=== PATIENT | male | born 2000 | race Caucasian/White ===

== ENCOUNTER 2023-05-21 06:47 | Emergency (ER) | payer OTHER ==
[~2023-05-21] VITALS: Ht 175.3 cm; Wt 95.5 kg
[2023-05-21 07:09] LABS: BASOPHILS % (AUTO) 0.3 % (0.0-2.0); EOSINOPHILS % (AUTO) 0.3 % (1.0-6.0); HEMATOCRIT 47.1 % (41-53); HEMOGLOBIN 15.5 g/dL (13.5-17.5); LYMPHOCYTES # (AUTO) 1.7 K/uL (1.0-4.8); LYMPHOCYTES % (AUTO) 12.3 % (22.0-44.0); MEAN CORPUSCULAR HEMOGLOBIN 28.1 pg (26.0-34.0); MEAN CORPUSCULAR HGB CONC 32.8 G/dL (31.0-37.0); MEAN CORPUSCULAR VOLUME 86 fL (80-100); MONOCYTES # (AUTO) 0.6 K/uL (0.1-1.0); MONOCYTES % (AUTO) 4.7 % (2.0-9.0); NEUTROPHILS # (AUTO) 11.3 K/uL (1.8-7.7); NEUTROPHILS % (AUTO) 82.4 % (40.0-70.0); PLATELET COUNT (AUTO) 295 K/uL (150-450); RED BLOOD CELL COUNT(AUTO) 5.51 MIL/uL (4.50-5.90); WHITE BLOOD COUNT (AUTO) 13.8 K/uL (4.5-11.0)
[2023-05-21 07:11] LABS: PH,URINE DRUG SCREEN 6.5 (5.0-8.0)
[2023-05-21 07:14] VITALS: BP 138/94; PULSE 71; RESP 16; TEMP 98.4
[2023-05-21 07:18] LABS: ALCOHOL, URINE DRUG SCREEN NEGATIVE (NEGATIVE); AMPHET/METH SCREEN,URINE NEGATIVE (NEGATIVE); BARBITURATE SCREEN, URINE NEGATIVE (NEGATIVE); BENZODIAZEPINES SCREEN,URINE NEGATIVE (NEGATIVE); CANNABINOID SCREEN,URINE POSITIVE (NEGATIVE); COCAINE SCREEN,URINE NEGATIVE (NEGATIVE); METHADONE SCREEN, URINE NEGATIVE (NEGATIVE); OPIATE SCREEN,URINE NEGATIVE (NEGATIVE); PHENCYCLIDINE SCREEN,URINE NEGATIVE (NEGATIVE)
[2023-05-21 07:19] LABS: ANION GAP 9 mmol/L (8-16); CALCIUM, TOTAL 9.3 mg/dL (8.8-10.5); CARBON DIOXIDE 27 mmol/L (22-29); CHLORIDE 105 mmol/L (98-107); GLOMERULAR FILTR. RATE CALC > 60 mL/min (>60); GLUCOSE,RANDOM 101 mg/dL (70-110); POTASSIUM 3.8 mmol/L (3.5-5.1); SODIUM SERUM 141 mmol/L (136-145); UREA NITROGEN, BLOOD 10 mg/dL (7-18)
[2023-05-21 07:25] LABS: ALANINE AMINOTRANSFERASE 27 U/L (12-78); ALBUMIN 4.4 g/dL (3.4-5.0); ALKALINE PHOSPHATASE 55 U/L (46-116); ASPARTATE AMINOTRANSFERASE 19 U/L (15-37); BILIRUBIN,TOTAL 0.4 mg/dL (0.1-1.0); TOTAL PROTEIN, SERUM 7.7 g/dL (6.4-8.2)
[2023-05-21 07:54] LABS: COVID AG,FIA SOURCE NASAL SWAB
[2023-05-21 07:54] LABS: ALCOHOL, BLOOD (SERUM) < 3 mg/dL (0-10)
[2023-05-21 08:17] LABS: SARS-COV2 (COVID) ANTIGEN,FIA Negative (Negative)
[2023-05-21 08:58] LABS: SALICYLATE < 2.8 mg/dL (2.8-20.0)
[2023-05-21 09:12] LABS: ACETAMINOPHEN < 2 mcg/mL (10-30)
== END 2023-05-21 12:25 | disposition short-term general hospital (02) ==
LOC: EMS 06:47
DX: F32.9 Major depressive disorder, single episode, unspecified (principal); R45.851 Suicidal ideations; Z20.822 Contact with and (suspected) exposure to COVID-19
CPT/HCPCS: 99285; 87426; 80053; 85025; 36415; 80307; G0480; G0481